=== PATIENT | female | born 1985 | race Caucasian/White ===

== ENCOUNTER 2021-11-22 12:15 | Emergency (ER) | payer OTHER, MEDICAID, SELFPAY ==
[2021-11-22 12:28] VITALS: BP 120/67; PULSE 60; RESP 16; TEMP 36.6; O2SAT 99
--- NOTE | 2021-11-22 12:44 | ED.GENADULT ---
HPI - General Adult General Chief complaint: Upper Respiratory Infection Stated complaint: Congestion,Cough,Sinus Source: patient Mode of arrival: ambulatory Limitations: no limitations History of Present Illness HPI narrative: Patient is a 36-year-old female who presents to the [facility] via POV for evaluation of upper respiratory symptoms that have been present for approximately 4 days. Additionally, she reports right ear pain, nasal congestion, cough, and sinus pressure. She reports her cough is productive. Sputum production is small in quantity and green/brown in color. Denies taking OTC meds for symptoms. Laying down increases sinus pressure. History of seasonal allergies. Her mother is also been experiencing similar signs and symptoms. She is fully vaccinated against influenza and COVID-19. Related Data Home Medications Medication Instructions Recorded Confirmed adalimumab [Humira] See Rx Instructions .ROUTE .COMPLEX 11/22/21 11/22/21 bupropion HCl 300 mg PO QAM 11/22/21 11/22/21 celecoxib [Celebrex] 100 mg PO BID 11/22/21 11/22/21 gabapentin 300 mg PO QPM 11/22/21 11/22/21 lamotrigine 75 mg PO DAILY 11/22/21 11/22/21 lorazepam [Ativan] 1 mg PO BID PRN 11/22/21 11/22/21 testosterone 1 patch TRANSDERMAL DAILY 11/22/21 11/22/21 Allergies Allergy/AdvReac Type Severity Reaction Status Date / Time No Allergy Information Allergy Unknown Other Verified 11/22/21 12:29 Available Review of Systems Review of Systems: Denies fever, chills, sweats, change in appetite, poor p.o. intake, headaches, dizziness, sinus pain, runny nose, headaches, nausea, vomiting, diarrhea, abdominal pain, sore throat, wheezing, hemoptysis, cyanosis, shortness of breath, chest pain, heart palpitations. [facility] Past Medical History Medical History (Updated 11/22/21 @ 13:04 by Lani Lockett, OSBALDO, ) Anxiety Borderline personality disorder Depression Gender dysphoria Rheumatoid arthritis Comments I have reviewed and agree with the patient's past medical, surgical, social, and family hx as documented by the RN. There is no relevant family history pertinent to the presenting complaint. Exam Narrative: GENERAL: Well-appearing, well-nourished, and in no acute distress. HEAD: Normocephalic, atraumatic. No sinus tenderness or facial swelling appreciated. EYES: PERRLA and EOMI. No evidence of erythema, swelling, or drainage. ENT: Bilateral external ears and ear canals normal. Right TM bulging with marked erythema. Small effusion also noted to right TM. Left TM normal. No TM perforation. Nares clear, no rhinorrhea or epistaxis. Bilateral turbinates without erythema/ swelling. Mucous membranes moist and pink. Uvula is midline without erythema and swelling. Posterior pharynx is mildly erythematous otherwise normal. Breath odor and voice normal. NECK: Supple. No Lymphadenopathy or nuchal rigidity appreciated. CHEST: Bilateral lung huntley are clear to auscultation. No respiratory distress. No evidence of cough or pleuritic cp upon examination. HEART: Regular rate and rhythm. No murmur, gallop, or rub heard. EXTREMITIES: Normal range of motion. No edema. SKIN: Warm, dry, no rash. NEURO: No focal deficits. Alert and oriented x3. Course Course Level of Care: Express Care Visit Vital Signs Vital signs: Vital Signs Temperature 97.8 F 11/22/21 12:28 Pulse Rate 60 11/22/21 12:28 Respiratory Rate 16 11/22/21 12:28 Blood Pressure 120/67 11/22/21 12:28 Pulse Oximetry 99 11/22/21 12:28 Temperature 97.8 F 11/22/21 12:28 Pulse Rate 60 11/22/21 12:28 Respiratory Rate 16 11/22/21 12:28 Blood Pressure 120/67 11/22/21 12:28 Pulse Oximetry 99 11/22/21 12:28 Reviewed Medical Decision Making Differential Diagnosis Differential Diagnosis: Allergic rhinitis, ABRS, acute viral sinusitis, strep pharyngitis, nasopharyngitis, bronchitis, pneumonia, AOM, otitis externa, viral URI, influenza, covid-19 Me
== END 2021-11-22 13:00 | disposition home or self-care (01) ==
PROVIDERS: Emergency Provider Nurse Practitioner Family
DX: J06.9 Acute upper respiratory infection, unspecified (principal); H66.92 Otitis media, unspecified, left ear; F41.9 Anxiety disorder, unspecified; F32.9 Major depressive disorder, single episode, unspecified; M06.9 Rheumatoid arthritis, unspecified
CPT/HCPCS: 99213; G0463

== ENCOUNTER 2023-01-27 08:18 | Outpatient (CLI) | payer OTHER, SELFPAY ==
--- NOTE | 2023-02-12 20:25 | WPDHOMESLEEP ---
Sleep Study - Home Unattended Date of Study: 01/27/23 Ordering Provider: Haley Gómez MD Interpreting Provider: Haley Gómez MD Home Sleep Study Type: Watch BREANA Height: 1.68 m Weight: 102.058 kg Body Mass Index: 36.3 Neck Circumference (inches): 16 [place]: 21 Reason for Sleep Study Hypersomnolence, insomnia Sleep History Laith Macias is a 37-year-old female to male transgender patient with history of anxiety, depression, schizoaffective disorder, ADHD, rheumatoid arthritis who underwent a home sleep test for evaluation of insomnia and excessive daytime sleepiness. He rarely awakens from sleep short of breath. He never awakens at night with heartburn, belching or cough. He frequently snores and never snores loud enough for others to complain. He constantly has trouble sleeping when he has a cold. He rarely wakes up gasping for breath during the night. He never has breathing problems at night. He constantly sweats excessively at night. He frequently falls asleep during the day. He frequently falls asleep involuntarily and occasionally falls asleep while driving. He never notices his heart pounding or beating irregularly during the night. He never experiences loss of muscle tone with strong emotion. He never feels paralyzed on waking or falling asleep. He occasionally experiences vivid dreams upon waking or falling asleep. He rarely feels afraid of going to sleep. He rarely has nightmares. He rarely recalls his dreams. He frequently has thoughts racing through his mind. He frequently feels sad or depressed. He constantly feels anxiety or worry about things. He occasionally notices parts of his body jerk. He rarely kicks during the night. He rarely feels crawling or aching feelings in his legs. He rarely feels leg pain at night. He does not grind his teeth during sleep but frequently has morning jaw pain. He constantly feels bothered by pain during the day and is frequently awakened by pain during the night. He constantly wakes up feeling stiff in the morning and frequently wakes up feeling sore and achy in the morning with pain in his neck, spine, or joints. Normal bedtime is around 10pm on the weekdays and same on the weekends, usually falling asleep anywhere from 20 minutes up to 4 hours. He typically gets about 6 hours of sleep per night. His wake-up time is around 6am on the weekdays and same on the weekends. He typically wakes up around 2 to 3 times per night and can be awake anywhere from 1 hour to the rest of the night, during which time he will read for a bit then try to fall back to sleep. Habits: Former tobacco smoker. He does not use caffeine or alcohol. Occasional recreational drug use. [facility] Past Medical History Medical History Anxiety Borderline personality disorder Depression Gender dysphoria Rheumatoid arthritis Family History Family History Father Heart disease Cerebrovascular accident Agent orange exposure Mother Type 2 diabetes mellitus Hypertension Cancer Sibling Unknown whether patient has any health problems Social History Social History Smoking status: Former smoker (quit 10 years ago 2012) Smoking end date: 07/20/12 Alcohol intake: never Substance use: current Substance use type: marijuana Other substance usage details: socially Living arrangements: with family Occupation/Education: student Medications Home Medications Medication Instructions Recorded Confirmed Type lorazepam 1 mg tablet (Ativan) 1 mg PO BID PRN Anxiety 11/22/21 11/22/21 History adalimumab 40 mg/0.4 mL 40 mg subcut 12/23/22 History subcutaneous pen kit (Humira(CF) Pen) clonidine HCl 0.1 mg 0.1 mg PO 12/23/22 History tablet,extended release,12 hr gabapentin 100 mg capsule 100 mg PO 12/23/22 History gabapent
[2023-02-12 20:31] VITALS: BMI 36.3
== END 2023-01-28 13:08 | disposition home or self-care (01) ==
LOC: ANHCSM 08:19
PROVIDERS: Visit Provider Internal Medicine Critical Care Medicine
DX: G47.33 Obstructive sleep apnea (adult) (pediatric) (principal); G47.10 Hypersomnia, unspecified; Z68.36 Body mass index [BMI] 36.0-36.9, adult
CPT/HCPCS: 95800

== ENCOUNTER 2023-01-29 17:01 | Emergency (ER) | payer OTHER, SELFPAY ==
--- NOTE | ~2023-01-29 | XR_ITS ---
EXAMINATION: XR foot RT min 3V DATE: 01/29/2023 17:49 INDICATION: Right foot injury. TECHNIQUE: 4 views of right foot were obtained. COMPARISON: None. FINDINGS: There is mild hallux valgus. No fracture. There is mild osteoarthritis of first metatarsoph alangeal joint. IMPRESSION: 1. Mild hallux valgus. 2. Mild osteoarthritis of first metatarsophalangeal joint. Reviewed, dictated and finalized at location E.
[2023-01-29 17:15] VITALS: BP 141/80; PULSE 62; RESP 16; TEMP 36.6; O2SAT 99
--- NOTE | 2023-01-29 18:45 | ED.LOWEXIN ---
HPI - Extremity Injury (Lower) General Chief Complaint: Extremity Injury, Lower Stated Complaint: R FOOT INJURY Time Seen by Provider: 01/29/23 18:20 History of Present Illness HPI Narrative: Patient is a 37-year-old male presenting with right foot pain. Patient states that about 6 days ago he twisted his right ankle and foot. States that he has had pain in this foot since then. States that he has had some bruising around some of his toes. Has continued to have a lot of pain especially with ambulation so he came in for further evaluation. No numbness or weakness. Denies further injuries or complaints. Related Data Home Medications Medication Instructions Recorded Confirmed lorazepam 1 mg tablet (Ativan) 1 mg PO BID PRN Anxiety 11/22/21 11/22/21 adalimumab 40 mg/0.4 mL 40 mg subcut 12/23/22 subcutaneous pen kit (Humira(CF) Pen) clonidine HCl 0.1 mg 0.1 mg PO 12/23/22 tablet,extended release,12 hr gabapentin 100 mg capsule 100 mg PO 12/23/22 gabapentin 300 mg capsule 300 mg PO 12/23/22 lamotrigine 200 mg tablet 200 mg PO 12/23/22 lisdexamfetamine 40 mg capsule 40 mg PO 12/23/22 (Vyvanse) methotrexate sodium 2.5 mg tablet 2.5 mg PO 12/23/22 propranolol 20 mg tablet 20 mg PO 12/23/22 testosterone cypionate 200 mg/mL 200 mg subcut 12/23/22 intramuscular oil trazodone 50 mg tablet 50 mg PO 12/23/22 venlafaxine 75 mg capsule,extended 75 mg PO 12/23/22 release 24 hr ziprasidone HCl 80 mg capsule 80 mg PO 12/23/22 Allergies Allergy/AdvReac Type Severity Reaction Status Date / Time No Allergy Information Allergy Unknown Other Verified 01/29/23 19:03 Available Review of Systems Review of Systems: All systems reviewed & are unremarkable except as noted in HPI and below PMFSH Past Medical History Medical History Anxiety Borderline personality disorder Depression Gender dysphoria Rheumatoid arthritis Family History Family History Father Heart disease Cerebrovascular accident Agent orange exposure Mother Type 2 diabetes mellitus Hypertension Cancer Sibling Unknown whether patient has any health problems Social History Social History Smoking status: Former smoker (quit 10 years ago 2012) Smoking end date: 07/20/12 Alcohol intake: never Substance use: current Substance use type: marijuana Other substance usage details: socially Living arrangements: with family Occupation/Education: student Exam Narrative: GENERAL: Well-appearing, well-nourished, and in no acute distress. HEAD: Normocephalic, atraumatic. EYES: PERRLA and EOMI. ENT: Nares clear, no rhinorrhea or epistaxis. NECK: Supple. CHEST: No respiratory distress. HEART: Regular rate and rhythm. Normal peripheral pulses. ABDOMEN: nondistended EXTREMITIES: Normal range of motion. No edema. no tenderness of right ankle, tender at bases of toes and lateral dorsal foot SKIN: Warm, dry, no rash. ecchymoses at bases of 2,3,4 toes, neurovascularly intact NEURO: No focal deficits. Alert and oriented x3. PSYCH: Normal mood and affect. Course Vital Signs Vital signs: Vital Signs Temperature 97.8 F 01/29/23 17:15 Pulse Rate 62 01/29/23 17:15 Respiratory Rate 16 01/29/23 17:15 Blood Pressure 141/80 H 01/29/23 17:15 Pulse Oximetry 99 01/29/23 17:15 Oxygen Delivery Room Air 01/29/23 17:15 Temperature 97.8 F 01/29/23 17:15 Pulse Rate 62 01/29/23 17:15 Respiratory Rate 16 01/29/23 17:15 Blood Pressure 141/80 H 01/29/23 17:15 Pulse Oximetry 99 01/29/23 17:15 Oxygen Delivery Room Air 01/29/23 17:15 MDM - Extremity Injury (Lower) MDM Narrative Medical decision making narrative: Patient is a 37-year-old male presenting with right foot pain after twisting it. Vitals within
[2023-01-29] MEDS: ACETAMINOPHEN 500 MG TABLET 1000 MG PO (19:04)
[2023-01-29] MEDS: IBUPROFEN 400 MG TABLET 800 MG PO (19:04)
== END 2023-01-29 20:00 | disposition home or self-care (01) ==
PROVIDERS: Emergency Provider Emergency Medicine
DX: M79.671 Pain in right foot (principal); Z87.891 Personal history of nicotine dependence
CPT/HCPCS: 73630; 99283; A9270

== ENCOUNTER 2023-03-12 12:36 | Outpatient (CLI) | payer OTHER, SELFPAY ==
[2023-04-01 18:39] VITALS: BMI 36.8
--- NOTE | 2023-04-01 18:39 | WPDSLEEPSTUD ---
Sleep Study Date of Study: 03/12/23 Ordering Provider: Haley Gómez MD Interpreting Physician: Haley Gómez MD Sleep Study Type: CPAP Titration Height: 1.68 m Weight: 103.419 kg Body Mass Index: 36.8 Neck Circumference (inches): 16 [place]: 17 Reason for Sleep Study * 01/27/2023 WatchPat home slee test showed mild obstructive sleep apnea, the apnea-hypopnea index is 7.9,?the central apnea index is 1.2, REM AHI 13.4.? Here for CPAP titration. Sleep History Laith Macias is a 37-year-old female to male transgender patient with history of anxiety, depression, schizoaffective disorder, ADHD, rheumatoid arthritis who underwent a home sleep test for evaluation of insomnia and excessive daytime sleepiness.? He rarely awakens from sleep short of breath.? He never awakens at night with heartburn, belching or cough.? He frequently snores and never snores loud enough for others to complain. He constantly has trouble sleeping when he has a cold. He rarely wakes up gasping for breath during the night. He never has breathing problems at night. He constantly sweats excessively at night. He frequently falls asleep during the day. He frequently falls asleep involuntarily and occasionally falls asleep while driving.? He never notices his heart pounding or beating irregularly during the night.? He never experiences loss of muscle tone with strong emotion. He never feels paralyzed on waking or falling asleep. He occasionally experiences vivid dreams upon waking or falling asleep. He rarely feels afraid of going to sleep. He rarely has nightmares. He rarely recalls his dreams. He frequently has thoughts racing through his mind. He frequently feels sad or depressed. He constantly feels anxiety or worry about things. He occasionally notices parts of his body jerk. He rarely kicks during the night. He rarely feels crawling or aching feelings in his legs. He rarely feels leg pain at night. He does not grind his teeth during sleep but frequently has morning jaw pain. He constantly feels bothered by pain during the day and is frequently awakened by pain during the night. He constantly wakes up feeling stiff in the morning and frequently wakes up feeling sore and achy in the morning with pain in his neck, spine, or joints.? Normal bedtime is around 10pm on the weekdays and same on the weekends, usually falling asleep anywhere from 20 minutes up to 4 hours. He typically gets about 6 hours of sleep per night. His wake-up time is around 6am on the weekdays and same on the weekends. He typically wakes up around 2 to 3 times per night and can be awake anywhere from 1 hour to the rest of the night, during which time he will read for a bit then try to fall back to sleep. Habits:? Former tobacco smoker. He does not use caffeine or alcohol. Occasional recreational drug use. [facility] Past Medical History Medical History (Updated 04/01/23 @ 18:53 by Haley Gómez MD) Anxiety Borderline personality disorder Depression Gender dysphoria Obstructive sleep apnea Rheumatoid arthritis Family History Family History Father Heart disease Cerebrovascular accident Agent orange exposure Mother Type 2 diabetes mellitus Hypertension Cancer Sibling Unknown whether patient has any health problems Social History Social History Smoking status: Former smoker (quit 10 years ago 2012) Smoking end date: 07/20/12 Alcohol intake: never Substance use: current Substance use type: marijuana Other substance usage details: socially Living arrangements: with family Occupation/Education: student Medications Home Medications Medication Instructions Recorded Confirmed Type lorazepam 1 mg tablet (Ativan) 1 mg PO BID PRN Anxiety 11/22/21 11/22/21 History adalimumab 40 mg/0.4 mL 40 mg subcut 12/23/22 History subcutaneous pen kit (Humira(CF) Pen
== END 2023-03-13 07:05 | disposition home or self-care (01) ==
LOC: ANHCSM 12:36
PROVIDERS: Visit Provider Internal Medicine Critical Care Medicine
DX: G47.33 Obstructive sleep apnea (adult) (pediatric) (principal)
CPT/HCPCS: 95811

== ENCOUNTER 2023-05-30 13:19 | Emergency (ER) | payer OTHER, SELFPAY ==
--- NOTE | ~2023-05-30 | XR_ITS ---
EXAMINATION: XR chest 2V DATE: 05/30/2023 13:49 INDICATION: Cough. Chest congestion. Fever. TECHNIQUE: Frontal and lateral views of the chest were obtained. COMPARISON: Chest 2 views 10/05/2018 FINDINGS: There are airspace opacities in left lower lobe. No pleural effusion or pneumothorax. The h eart size is normal. IMPRESSION: 1. Airspace opacities in left lower lobe, consistent with pneumonia. Reviewed, dictated and finalized at location A. [facility]
[2023-05-30 13:34] VITALS: BP 121/68; PULSE 75; RESP 18; TEMP 36.9; O2SAT 95
--- NOTE | 2023-05-30 13:34 | ED.URI ---
HPI - URI/Sore Throat General Chief Complaint: Upper Respiratory Infection Stated Complaint: cough Time Seen by Provider: 05/30/23 13:34 Source: patient Mode of arrival: ambulatory Limitations: no limitations History of Present Illness HPI Narrative: Laith is a 38-year-old man presenting to the complaints a cough and chest congestion x1 week. They report they have felt feverish however they have not been able to checked her temperature. Denies any chest pain or but has mild shortness of breath. SpO2 is 95% on room air. No history of current tobacco use or vaping. Does smoke marijuana occasionally. Sore throat only when coughing. MD elicited complaint: cough, sore throat, nasal congestion and other (Chest congestion) Related Data Home Medications Medication Instructions Recorded Confirmed lorazepam 1 mg tablet (Ativan) 1 mg PO BID PRN Anxiety 11/22/21 11/22/21 adalimumab 40 mg/0.4 mL 40 mg subcut 12/23/22 subcutaneous pen kit (Humira(CF) Pen) clonidine HCl 0.1 mg 0.1 mg PO 12/23/22 tablet,extended release,12 hr gabapentin 100 mg capsule 100 mg PO 12/23/22 gabapentin 300 mg capsule 300 mg PO 12/23/22 lamotrigine 200 mg tablet 200 mg PO 12/23/22 lisdexamfetamine 40 mg capsule 40 mg PO 12/23/22 (Vyvanse) methotrexate sodium 2.5 mg tablet 2.5 mg PO 12/23/22 propranolol 20 mg tablet 20 mg PO 12/23/22 testosterone cypionate 200 mg/mL 200 mg subcut 12/23/22 intramuscular oil trazodone 50 mg tablet 50 mg PO 12/23/22 venlafaxine 75 mg capsule,extended 75 mg PO 12/23/22 release 24 hr ziprasidone HCl 80 mg capsule 80 mg PO 12/23/22 Allergies Allergy/AdvReac Type Severity Reaction Status Date / Time No Allergy Information Allergy Unknown Other Verified 01/29/23 19:03 Available Review of Systems Review of Systems: Pertinent positives per HPI. Patient denies any rash, headache, visual changes, dizziness, chest pain, palpitations, nausea, vomiting, diarrhea, constipation, abdominal pain, or any urinary issues. [facility] Past Medical History Medical History Anxiety Borderline personality disorder Depression Gender dysphoria Obstructive sleep apnea Rheumatoid arthritis Family History Family History Father Heart disease Cerebrovascular accident Agent orange exposure Mother Type 2 diabetes mellitus Hypertension Cancer Sibling Unknown whether patient has any health problems Social History Social History Smoking status: Former smoker (quit 10 years ago 2012) Smoking end date: 07/20/12 Alcohol intake: never Substance use: current Substance use type: marijuana Other substance usage details: socially Living arrangements: with family Occupation/Education: student Gender identity (if verbalized by the patient): Transgender Male Comments At the time of my signature, I reviewed and agree with the nursing past medical, surgical, social, and family history. There is no relevant family history pertinent to the patient complaint. Exam Narrative: General: Well-developed, overweight in no apparent distress Head: Normocephalic, atraumatic Eyes: Pupils equally round and reactive to light bilaterally, EOM intact, sclera and conjunctive clear, no discharge, lids normal Ears: TMs intact and clear, ear canals clear, no drainage, grossly hearing normal. Nose: Nares patent, clear nasal discharge, no inflammation, no sinus tenderness. Mouth: Oral pharynx without lesions or masses, good dentition, MMM. Neck: Supple, trachea midline, no enlargement of anterior or posterior cervical nodes, no thyroid masses or goiter palpable. Cardio: Regular rate and rhythm, s1 and s2 normal, no murmur appreciated. Resp: Bilateral rhonchi/crackles in the lower bases lung huntley, no wheezing or rubs
--- NOTE | 2023-05-30 14:13 | PC.NURSE ---
PT SENT HOME WITH INCENTIVE SPIROMETER
== END 2023-05-30 14:16 | disposition home or self-care (01) ==
PROVIDERS: Emergency Provider Nurse Practitioner Family
DX: J18.9 Pneumonia, unspecified organism (principal); Z87.891 Personal history of nicotine dependence
CPT/HCPCS: 71046; 99213; G0463

== ENCOUNTER 2025-01-16 14:01 | Emergency (ER) | payer SELFPAY ==
[2025-01-16 14:13] VITALS: BP 106/66; PULSE 76; RESP 18; TEMP 36.2; O2SAT 100
--- OUTSIDE RECORDS SUMMARY | 2025-01-16 14:19 | XMS_ITS | Clinical Summary ---
Author Organization [facility] [place] Address [address] [place] [place] [address] Care Team Providers Care Coil Cleaner Name Role Phone Gordy Paula Primary Care Provider [phone] Source Comments [facility],non-owned Affiliates and Associated Physician Practices is amultiple site organization consisting of ambulatory clinics and hospital sitesin [place], [place], [place] and [place]. This disclosure is being madepursuant to the Care Everywhere program and may not contain all information available regarding this patient. Last updated 18.[facility] [place] Allergies Active Allergy Reactions Criticality Noted Date Comments Tomato Swelling High 04/23/2017 Throat swelling Medications * Be aware that medications may not be up to date on this document. Alwaysverify current medications with the patient. rOPINIRole (REQUIP) 0.5 MG tablet Take 1 (one) tablet by mouth 07/10/2021 Active lamoTRIgine (LAMICTAL) 200 MG tablet Take 1 (one) tablet by mouth 2 times daily 07/12/2021 Active ziprasidone (Geodon) 80 MG capsule Take 1 (one) capsule by mouth 2 times daily with morning and evening meal 05/08/2022 Active LORazepam (Ativan) 1 MG tablet 05/02/2022 Active traZODone (Desyrel) 50 MG tablet Take 1 (one) tablet to 2 (two) tablets by mouth nightly as needed 07/22/2022 Active venlafaxine XR 24hr (Effexor XR) 75 MG capsule Take 1 (one) capsule by mouth 2 times daily 08/17/2023 Active lurasidone (Latuda) 20 MG tablet Take 1 (one) tablet by mouth every evening 08/17/2023 Active famciclovir (Famvir) 500 MG tablet Take 1 (one) tablet by mouth 3 times daily For 7 days. 08/20/2023 Active cloNIDine ER 12hr (Kapvay) 0.1 MG tablet Take 1 (one) tablet by mouth at bedtime 08/05/2023 Active amphetamine-dex troamphetamine XR 24hr (Adderall XR) 15 MG capsule Take 1 (one) capsule by mouth once daily 08/05/2023 Active methotrexate 2.5 MG tablet Take 3 (three) tablets by mouth every 7 days for 14 days, THEN 6 (six) tablets every 7 days. 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 (F LUZONE; FLULAVAL; FLUARIX; AFLURIA QUADRIVALENT; 6MO+), 0.5 ML (IIV4) 07/27/2020,05/13/2019,04/13/2018 TDAP (7yrs+) 09/02/2012 iNFLUENZA VACCINE, RECOM-GARCIA, QUADR. (FLUBLOCK QUADRIVALENT; 18Y+) (RIV4) 05/21/2022 Social History Tobacco Use Types Packs/Day Years Used Date Smoking Tobacco: Some Days Cigarettes Smokeless Tobacco: Never Tobacco Cessation:Ready to Q uit: Not Asked; Counseling Given: Not Answered Comments:Quit 12/2017 Alcohol Use Standard Drinks/Week Comments No 0 (1 standard drink = 0.6 oz pur e alcohol) PHQ-2 Answer Date Recorded Patient Health Questionnaire-2 Score 4 08/27/2023 Comments No Sex and Gender Information Value Date Recorded Sex Assigned at Not on file Legal Sex Female 5:35 AM CAR LOADER Gender Identity Male 08/20/2022 8:12 AM CAR LOADER Sexual Orientation Not on file Last Filed Vital Signs Vital Sign Reading Time Taken Comments Blood Pressure 108/68 08/27/2023 2:50 PM CAR LOADER Pulse 71 08/27/2023 2:50 PM CAR LOADER Temperature 36.3 C (97.4 F) 08/27/2023 2:50 PM CAR LOADER Respiratory Rate 18 04/23/2017 9:49 AM CDT Oxygen Saturation 94% 08/27/2023 2:50 PM CAR LOADER Inhaled Oxygen Concentration - - Weight 107.1 kg (236 lb 3.2 oz) 08/27/2023 2:50 PM CAR LOADER Height 167.6 cm (5' 6) 08/27/2023 2:50 PM CAR LOADER Body Mass Index 38.12 08/27/2023 2:50 PM CAR LOADER Plan of Treatment Health Maintenance Due Date Last Done Comments HIV SCREENING 2001 HEPATITIS B VACCINE (1 of 3 - 19+ 3-dose series) 2005 PNEUMOCOCCAL VACCINE (1 of 2 - PCV) 2005 ZOSTER VACCINE (1 of 2) 2005 PAP SMEAR 2007 COVID-19 VACCINE (3 - Pfizer risk series) 11/07/2020 10/10/2020, 09/18/2020 DTAP/TDAP/TD VACCINES (2 - Td or Tdap) 09/02/2022 09/02/2012 DEPRESSION SCREENING 07/20/2024 08/27/2023, 03/27/20 22 INFLUENZA VACCINE (Season Ended) 2025 05/21/2022, 06/29/2021, 07/27/2020, Additional history exists HEPATITIS C SCREENING Completed 03/27/2022, 017 HIB VACCINE Aged Out No longer eligi ble based on patient's age to complete this topic HPV VACCINE Aged Out No longer eligi ble based on patient's age to complete this topic MENINGOCOCCAL (Group B) VACCINE SHARED DECISION-MAKING Aged Out No longer eligible based on patient's age to complete this topic MENINGOCOCCAL GROUPS A/C/Y/W VACCINE Aged Out No longer eligible based on patient's age to complete this topic Procedures Procedure Name Priority Date/Time Associated Diagnosis Comments HEPATITIS C ANTIBODY Routine 03/27/2022 9:29 AM CDT Rheumatoid arthritis involving multiple sites with positive rheumatoid factor 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 Patients with unexplained liver disease who are immunocompromised or suspected of having acute Hepatitis C infection may benefit from Nucleic Acid Test (ROMARIO) for Hepatitis C Viral RNA to confirm Hepatitis C status. Blood BLOOD SPECIMEN / Unknown Lab Venipuncture / Unknown 03/27/2022 9:29 AM CDT 03/27/2022 10:52 AM CDT Franko Fraser MD LAB - CHEMISTRY ORDERABLES Final Result [facility] [address] [place] [address], [facility] [phone] from Last 3 Months or Most Recently Relevant to Health Maintenance Insurance [facility] Care Teams Coil Cleaner Relationship Specialty Start Date End Date Gordy Paula PA [address] [place] [id number] PCP - General 01/18/18
--- OUTSIDE RECORDS SUMMARY | 2025-01-16 14:19 | XMS_ITS | Clinical Summary ---
Author Organization [facility] Address [address] [place] [address] Care Team Providers Care Account Executive [employer] Name Role Phone Susu Macedo MD Primary Care Provider [phone] Allergies No known active allergies Medications adalimumab (Humira,CF, Pen) 40 mg/0.4 mL pen injector kitIndications:Rh eumatoid Arthritis Inject 0.4 mL (40 mg total) under the skin every 14 (fourteen) days 1 Active FLUoxetine (PROzac) 40 mg capsule Take 40 mg by mouth every morning 1 Active methotrexate 2.5 mg tabletIndications :Rheumatoid Arthritis Take 7 tablets (17.5 mg total) by mouth every 7 days 1 Active testosterone cypionate (DEPO-TESTOTERONE ) 200 mg/mL injectionIndicati ons:Mondays- gender transition Inject 1 mL (200 mg total) into the muscle as instructed once a week 1 Active cloNIDine ER (KAPVAY) 0.1 mg tablet extended release 12 hr Take 1 tablet (0.1 mg total) by mouth nightly 3 Active finasteride (PROPECIA) 1 mg tablet Take 1 tablet (1 mg total) by mouth daily Active lisdexamfetamine (Vyvanse) 20 mg capsule Take 1 capsule (20 mg total) by mouth daily 3 Active rOPINIRole (REQUIP) 0.5 mg tablet Take 1 tablet (0.5 mg total) by mouth 1 Active traZODone (DESYREL) 50 mg tablet Take by mouth nightly as needed 3 Active venlafaxine XR (EFFEXOR-XR) 75 mg 24 hr capsule TAKE 1 CAPSULE BY MOUTH TWICE A DAY WITH FOOD 3 Active ziprasidone (GEODON) 80 mg capsule TAKE 1 CAPSULE BY MOUTH TWICE A DAY WITH FOOD Active propranoloL (INDERAL) 20 mg tablet Take by mouth as needed 3 Active gabapentin (NEURONTIN) 300 mg capsule TAKE 1 CAPSULE BY MOUTH IN THE MORNING AND 1 CAPSULE AT NOON, 2 CAPSULES BEFORE BED FOR 90 DAYS 3 Active lamoTRIgine (LaMICtal) 200 mg tablet 2 (two) times a day 3 Active LORazepam (ATIVAN) 1 mg tablet 1 tablet (1 mg total) 3 Active levETIRAcetam (KEPPRA) 750 mg tabletIndications :Spell of altered consciousness TAKE 1 TABLET BY MOUTH TWICE A DAY 180 tablet 3 Active Additional Information Patient not taking.Reported on 06/16/2023 Active Problems Problem Noted Date Diagnosed Date Abnormal EEG 06/18/2023 Spell of altered consciousness 2023 Abnormal uterine bleeding 01/22/2021 Overview (01/22/2021): Added automatically from request for surgery [id number] Premenstrual dysphoric disorder 01/22/2021 Overview (01/22/2021): Added automatically from request for surgery [id number] Gender identity disorder 01/22/2021 Overview (01/22/2021): Added automatically from request for surgery [id number] Adiposity 01/26/2014 Overview (10/25/2016): Obesity Arthralgia 01/26/2014 Overview (10/25/2016): Joint pain Surgical History Surgery Date Site/Laterality Comments THUMB SURGERY 07/20/2012 - 07/19/2013 Left WISDOM TOOTH EXTRACTION Medical History Medical History Date Comments Depression Transgender gender identity- female to male Rheumatoid arthritis (HCC) Tobacco abuse Marijuana smoker Obesity PONV (postoperative nausea and vomiting) Family History Medical History Relation Name Comments Asthma Brother Asthma; Other Father Heart attack/ s troke; Cause of : Heart attack/ stroke Psoriasis Father Psoriasis; Rheum arthritis Father Rheumatoid a rthritis; Diabetes type II Mother Diabetes me llitus type 2; Hypertension Mother Hypertension; Rheum arthritis Paternal Grandmother Rheu matoid arthritis; Relation Name Status Comments Brother Father Mother Paternal Grandmother Social History Tobacco Use Types Packs/Day Years Used Date Smoking Tobacco: Former Cigarettes 0.5 9.6 2 008 - 03/13/2017 Smokeless Tobacco: Never Tobacco Cessation:Counseling Given: No Alcohol Use Standard Drinks/Week Comments Yes 0 (1 standard drink = 0.6 oz pur e alcohol) AUDIT-C Answer Date Recorded Q1: How often do you have a drink containing alc ohol? Never 03/13/2021 Average Number of Drinks Not on file 021 Q3: How often do you have si x or more drinks on one occasion? 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 Gender Identity Male 2023 12:22 PM CDT Sexual Orientation Not on file Obstetrics History Last Filed Vital Signs Vital Sign Reading Time Taken Comments Blood Pressure 109/76 06/16/2023 8:14 AM LINE HAUL DRIVER Pulse 74 06/16/2023 8:14 AM LINE HAUL DRIVER Temperature 36.5 C (97.7 F) 08/28/2018 10:38 AM LINE HAUL DRIVER Respiratory Rate 18 06/16/2023 8:14 AM LINE HAUL DRIVER Oxygen Saturation 94% 06/16/2023 8:14 AM LINE HAUL DRIVER Inhaled Oxygen Concentration - - Weight 100.2 kg (221 lb) 06/16/2023 8:14 AM LINE HAUL DRIVER Height 167.6 cm (5' 6) 06/16/2023 8:14 AM LINE HAUL DRIVER Body Mass Index 35.67 06/16/2023 8:14 AM LINE HAUL DRIVER Plan of Treatment Health Maintenance Due Date Last Done Comments Cervical Cancer Screening 1986 Depression Screening 1986 Hepatitis C Screening 1986 Varicella Vaccines (1 of 2 - 13+ 2-dose series) 1999 Hepatitis B Screening 2004 Regular Well Visit/Exam 18-64 2004 Pneumococcal vaccine <65 (1 of 2 - PCV) 2005 Zoster Vaccine (1 of 2) 2005 Covid-19 Vaccine (3 - Pfizer risk series) 11/07/2020 10/10/2020, 09/18/2020 Influenza Vaccine (Season Ended) 2025 05/21/2022, 06/29/2021, 07/27/2020, Additional history exists DTaP/Tdap/Td Vaccine (3 - Td or Tdap) 10/12/2028 10/12/2018, 09/02/2012 HPV Vaccines Aged Out No longer eligi ble based on patient's age to complete this topic Insurance [facility] Member Subscriber Plan / Payer (Ef fective 2021-Present) Name:Tisha Macias Relation to Subscriber:Self Name:Tisha Macias Payer ID:[id number] (NA) Type:MEDICAID RISK OTHER Address: [place] [id number] Care Teams Account Executive Agribusiness Relationship Specialty Start Date End Date Susu Macedo MD PCP - General 01/22/21
--- OUTSIDE RECORDS SUMMARY | 2025-01-16 14:19 | XMS_ITS | Patient Health Record ---
Author Organization [facility] Address [address] [place] [address] Care Team Providers [facility] Officer Name Role Phone Afia Navarro Primary Care Provider [phone] Chacho Thomas Unavailable [phone] Allergies No Known Allergies Reason For Referral No Information Medications Medication SIG (Take, Route, Frequency, Duration) Notes Start Date End Date Status LORazepam 1 MG 1 tablet Orally Three times daily As needed for severe anxiety/panic 08/10/2024 Active traZODone HCl 50 MG 1 tablet at bedtime as needed Orally Once a day Active lamoTRIgine 200 MG TAKE 1 TABLET BY MOUTH TWICE A DAY Patient requests 30 day fills with refills (not 90 day) Active Amphetamine-Dextroa mphet ER 15 MG 1 capsule in the morning Orally Once a day Prescribed per Haley Gómez MD currently. 08/17/2023 Active Venlafaxine HCl ER 75 MG 1 capsule with food Orally Twice a day Active Venlafaxine HCl ER 150 MG 1 capsule with food Orally Once a day Patient requests 30 day fills with refills (not 90 day) Active Humira 40 MG/0.8ML 0.8 mL Subcutaneous; Duration: 30 day(s) Active [place] Carbonate ER 300 MG 1 tablet at bedtime Orally Once a day; Duration: 30 days Stopping haldol, client did not have good response. Starting low dose, subtherapeutic lithium as augmenting medication paired with lurasidone/lamotrigi ne combo. 11/22/2024 Active Methotrexate 2.5 MG as directed Orally Active Lurasidone HCl 120 MG 1 tablet in the evening with food Orally Once a day; Duration: 30 days Dose increase to daily total of 120 mg once daily. Client has requested 30 day fills not 90 day. Active Testosterone Cypionate 200 MG/ML 1 ml Intramuscular Ac tive Finasteride 1 MG 1 tablet Orally Once a day; Duration: 30 day(s) Active Venlafaxine HCl ER 75 MG 1 capsule with food (take in addition to 150 mg capsule) Orally Once a day; Duration: 30 days Patient requests 30 day fills with refills (not 90 day) 03/09/2024 Active Social History Tobacco Use: Social History Observation Description Date Details (start date - stop date) Never Smoker NA - NA Sex Assigned At : Social History Observation Description Sex Assigned At Female Dont use, Tobacco Use/Smoking Question Answer Notes Are you a former smoker Alcohol Screen (Audit-C) Question Answer Notes Did you have a drink containing alcohol in the p ast year? Yes Tobacco Control (Standard) Question Answer Notes Tobacco use: Nonsmoker Problems Problem Type SNOMED Code ICD Code Onset Dates Problem Status W/U Status Risk Notes Problem Extrapyramidal movements (495531951) Extrapyramidal and movement disorder, unspecified (G25.9) Active confirmed Problem Attention deficit hyperactivity disorder (609794436) ADHD (attention deficit hyperactivity disorder), combined type (F90.2) Active confirmed Problem Generalized anxiety disorder (97268025) BRAULIO (generalized anxiety disorder) (F41.1) Active confirmed Problem Cannabis abuse (48324332) Cannabis abuse (F12.10) Active confirmed Problem Schizoaffective disorder (20703828) Schizoaffective disorder (F25.9) Active confirmed Problem EEG abnormal (748198259) Abnormal EEG (R94.01) Active confirmed Problem Obese class I (839324098394485) BMI 33.0-33.9,adult (Z68.33) Active confirmed Encounters Encounter Location Date Provider Diagnosis [address] [place] [address] 02/02/2024 Chacho Thomas Schizoaffective disorder F25.9 ; BRAULIO (generalized anxiety disorder) F41.1 ; ADHD (attention deficit hyperactivity disorder), combined type F90.2 and Extrapyramidal and movement disorder, unspecified G25.[address] [place] [address] 03/09/2024 Chacho Thomas Schizoaffective disorder F25.9 ; BRAULIO (generalized anxiety disorder) F41.1 ; ADHD (attention deficit hyperactivity disorder), combined type F90.2 and Extrapyramidal and movement disorder, unspecified G25.[address] [address] 05/24/2024 Chacho Thomas Schizoaffective disorder F25.9 ; BRAULIO (generalized anxiety disorder) F41.1 ; ADHD (attention deficit hyperactivity disorder), combined type F90.2 and Extrapyramidal and movement disorder, unspecified G25.[address] [address] 08/10/2024 Chacho Thomas Schizoaffective disorder F25.9 ; BRAULIO (generalized anxiety disorder) F41.1 ; ADHD (attention deficit hyperactivity disorder), combined type F90.2 and Extrapyramidal and movement disorder, unspecified G25.[address] [address] 11/09/2024 Chacho Thomas Schizoaffective disorder F25.9 ; BRAULIO (generalized anxiety disorder) F41.1 ; ADHD (attention deficit hyperactivity disorder), combined type F90.2 and Extrapyramidal and movement disorder, unspecified G25.[address] [address] 11/22/2024 Chacho Thomas Schizoaffective disorder F25.9 ; BRAULIO (generalized anxiety disorder) F41.1 ; ADHD (attention deficit hyperactivity disorder), combined type F90.2 and Extrapyramidal and movement disorder, unspecified G25.9 [facility] [address] [place] [address] 01/20/2024 Chacho Thomas Schizoaffective disorder F25.[address] [address] 02/15/2024 Chacho Thomas [facility] [address] [place] [address] 02/16/2024 Chacho Thomas Schizoaffective disorder F25.9 and BRAULIO (generalized anxiety disorder) F41.[address] [place] [address] 05/16/2024 Chacho Thomas BRUALIO (generalized anxiety disorder) F41.1 and Schizoaffective disorder F25.[address] [place] [address] 08/23/2024 Chacho Thomas [facility] [address] [place] [address] 09/13/2024 Chacho Thomas [facility] [address] [place] [address] 11/11/2024 Chacho Thomas [address] [place] [address] 11/21/2024 Chacho Thomas [address] [facility] [place] [address] 11/30/2024 Chacho Thomas Schizoaffective disorder F25.9 Assessments Encounter Date Diagnosis (ICD Code) Assessment Notes Treatment Notes Treatment Clinical Notes Section Notes 01/20/2024 Schizoaffective disorder (ICD-10 - F25.9) 02/02/2024 Schizoaffective disorder (ICD-10 - F25.9) Client requests a prn immediate release dose of guanafacine to use during daytime to see if helpful for anxiety and an increase in ER to see if helpful. No other changes in medications at this time. 02/16/2024 Schizoaffective disorder (ICD-10 - F25.9) 03/09/2024 Schizoaffective disorder (ICD-10 - F25.9) Client very distressed, denies SI/HI. Requests increases to Latuda/guanfaci ne. Discussed increase to venlafaxine as this as helped in past. Discussed cannabis withdrawal playing larger role in symptomology than client may be realizing. Client states does not feel this is the issue. Encouraged client to reach out to endocrinology for hormone level check in event this could also be playing a role in symptoms. 05/16/2024 BRAULIO (generalized anxiety disorder) (ICD-10 - F41.1) 05/24/2024 Schizoaffective disorder (ICD-10 - F25.9) 08/10/2024 Schizoaffective disorder (ICD-10 - F25.9) Client doing well, no treatment plan changes needed at present. 11/09/2024 Schizoaffective disorder (ICD-10 - F25.9) Client is agreeable to increase in lurasidone from 80 mg to 100 mg for tx of increase in manic behaviors/AH. Haldol 0.5 mg PRN prescribed as rescue medication for client to take half tablet to full tablet once a day for increased paranoia as client very fearful of losing job due to continued behaviors. No other changes in tx plan at this time. Client has taken the rest of the week off work and knows to call if letter needed. 11/22/2024 Schizoaffective disorder (ICD-10 - F25.9) Client continues to struggle with mood swings and irritability. Haldol unhelpful for quick mood stability as hoped. Client requesting lurasidone maxed out at 120 mg (now at 100 mg) as this medication has been very helpful in past and client does not want to switch to different SGA. Not in dx list but has been dx BPD in past and not currently in counseling. Encouraged to think about therapy as recently moved out on own with son for first time as adult and has had many new changes. Client open to trial of low dose ER lithium to stablize mood as quickly as possible. No other changes to tx plan. 11/30/2024 Schizoaffective disorder (ICD-10 - F25.9) 11/22/2024 BRAULIO (generalized anxiety disorder) (ICD-10 - F41.1) Client continues to struggle with mood swings and irritability. Haldol unhelpful for quick mood stability as hoped. Client requesting lurasidone maxed out at 120 mg (now at 100 mg) as this medication has been very helpful in past and client does not want to switch to different SGA. Not in dx list but has been dx BPD in past and not currently in counseling. Encouraged to think about therapy as recently moved out on own with son for first time as adult and has had many new changes. Client open to trial of low dose ER lithium to stablize mood as quickly as possible. No other changes to tx plan. 11/09/2024 BRAULIO (generalized anxiety disorder) (ICD-10 - F41.1) Client is agreeable to increase in lurasidone from 80 mg to 100 mg for tx of increase in manic behaviors/AH. Haldol 0.5 mg PRN prescribed as rescue medication for client to take half tablet to full tablet once a day for increased paranoia as client very fearful of losing job due to continued behaviors. No other changes in tx plan at this time. Client has taken the rest of the week off work and knows to call if letter needed. 08/10/2024 BRAULIO (generalized anxiety disorder) (ICD-10 - F41.1) Client doing well, no treatment plan changes needed at present. 05/24/2024 BRAULIO (generalized anxiety disorder) (ICD-10 - F41.1) 05/16/2024 Schizoaffective disorder (ICD-10 - F25.9) 03/09/2024 BRAULIO (generalized anxiety disorder) (ICD-10 - F41.1) Client very distressed, denies SI/HI. Requests increases to Latuda/guanfaci ne. Discussed increase to venlafaxine as this as helped in past. Discussed cannabis withdrawal playing larger role in symptomology than client may be realizing. Client states does not feel this is the issue. Encouraged client to reach out to endocrinology for hormone level check in event this could also be playing a role in symptoms. 02/16/2024 BRAULIO (generalized anxiety disorder) (ICD-10 - F41.1) 02/02/2024 BRAULIO (generalized anxiety disorder) (ICD-10 - F41.1) Client requests a prn immediate release dose of guanafacine to use during daytime to see if helpful for anxiety and an increase in ER to see if helpful. No other changes in medications at this time. 02/02/2024 ADHD (attention deficit hyperactivity disorder), combined type (ICD-10 - F90.2) Client requests a prn immediate release dose of guanafacine to use during daytime to see if helpful for anxiety and an increase in ER to see if helpful. No other changes in medications at this time. 03/09/2024 ADHD (attention deficit hyperactivity disorder), combined type (ICD-10 - F90.2) Client very distressed, denies SI/HI. Requests increases to Latuda/guanfaci ne. Discussed increase to venlafaxine as this as helped in past. Discussed cannabis withdrawal playing larger role in symptomology than client may be realizing. Client states does not feel this is the issue. Encouraged client to reach out to endocrinology for hormone level check in event this could also be playing a role in symptoms. 05/24/2024 ADHD (attention deficit hyperactivity disorder), combined type (ICD-10 - F90.2) 08/10/2024 ADHD (attention deficit hyperactivity disorder), combined type (ICD-10 - F90.2) Client doing well, no treatment plan changes needed at present. 11/09/2024 ADHD (attention deficit hyperactivity disorder), combined type (ICD-10 - F90.2) Client is agreeable to increase in lurasidone from 80 mg to 100 mg for tx of increase in manic behaviors/AH. Haldol 0.5 mg PRN prescribed as rescue medication for client to take half tablet to full tablet once a day for increased paranoia as client very fearful of losing job due to continued behaviors. No other changes in tx plan at this time. Client has taken the rest of the week off work and knows to call if letter needed. 11/22/2024 ADHD (attention deficit hyperactivity disorder), combined type (ICD-10 - F90.2) Client continues to struggle with mood swings and irritability. Haldol unhelpful for quick mood stability as hoped. Client requesting lurasidone maxed out at 120 mg (now at 100 mg) as this medication has been very helpful in past and client does not want to switch to different SGA. Not in dx list but has been dx BPD in past and not currently in counseling. Encouraged to think about therapy as recently moved out on own with son for first time as adult and has had many new changes. Client open to trial of low dose ER lithium to stablize mood as quickly as possible. No other changes to tx plan. 11/22/2024 Extrapyramidal and movement disorder, unspecified (ICD-10 - G25.9) Client continues to struggle with mood swings and irritability. Haldol unhelpful for quick mood stability as hoped. Client requesting lurasidone maxed out at 120 mg (now at 100 mg) as this medication has been very helpful in past and client does not want to switch to different SGA. Not in dx list but has been dx BPD in past and not currently in counseling. Encouraged to think about therapy as recently moved out on own with son for first time as adult and has had many new changes. Client open to trial of low dose ER lithium to stablize mood as quickly as possible. No other changes to tx plan. 11/09/2024 Extrapyramidal and movement disorder, unspecified (ICD-10 - G25.9) Client is agreeable to increase in lurasidone from 80 mg to 100 mg for tx of increase in manic behaviors/AH. Haldol 0.5 mg PRN prescribed as rescue medication for client to take half tablet to full tablet once a day for increased paranoia as client very fearful of losing job due to continued behaviors. No other changes in tx plan at this time. Client has taken the rest of the week off work and knows to call if letter needed. 08/10/2024 Extrapyramidal and movement disorder, unspecified (ICD-10 - G25.9) Client doing well, no treatment plan changes needed at present. 05/24/2024 Extrapyramidal and movement disorder, unspecified (ICD-10 - G25.9) 03/09/2024 Extrapyramidal and movement disorder, unspecified (ICD-10 - G25.9) Client very distressed, denies SI/HI. Requests increases to Latuda/guanfaci ne. Discussed increase to venlafaxine as this as helped in past. Discussed cannabis withdrawal playing larger role in symptomology than client may be realizing. Client states does not feel this is the issue. Encouraged client to reach out to endocrinology for hormone level check in event this could also be playing a role in symptoms. 02/02/2024 Extrapyramidal and movement disorder, unspecified (ICD-10 - G25.9) Client requests a prn immediate release dose of guanafacine to use during daytime to see if helpful for anxiety and an increase in ER to see if helpful. No other changes in medications at this time. [place]24 [place]. Discussed sleep hygiene and caffeine intake with encouragement to limit electronic devices an hour before bed and to limit caffeine after 3:00pm. Exercise benefits for mood and health discussed. Psychoeducation regarding psychiatric illness provided. Client was educated about risks and benefits of medication, alternatives to medication, off label uses of medication, suicidal ideation with SSRIs, self-administrati on and compliance with medication along with how to safely store medication. Verbal informed consent obtained. Client agrees to return sooner if symptoms worsen or if suicidal or homicidal ideations occur. Client has the phone number to the 24-hour crisis line at [facility]. Questions addressed. Client verbalized understanding of all information and is agreeable to treatment plan. Client requests a prn immediate release dose of guanafacine to use during daytime to see if helpful for anxiety and an increase in ER to see if helpful. No other changes in medications at this time. 03/09/2024 [place]. Discussed sleep hygiene and caffeine intake with encouragement to limit electronic devices an hour before bed and to limit caffeine after 3:00pm. Exercise benefits for mood and health discussed. Psychoeducation regarding psychiatric illness provided. Client was educated about risks and benefits of medication, alternatives to medication, off label uses of medication, suicidal ideation with SSRIs, self-administrati on and compliance with medication along with how to safely store medication. Verbal informed consent obtained. Client agrees to return sooner if symptoms worsen or if suicidal or homicidal ideations occur. Client has the phone number to the 24-hour crisis line at [facility]. Questions addressed. Client verbalized understanding of all information and is agreeable to treatment plan. Client very distressed, denies SI/HI. Requests increases to Latuda/guanfaci ne. Discussed increase to venlafaxine as this as helped in past. Discussed cannabis withdrawal playing larger role in symptomology than client may be realizing. Client states does not feel this is the issue. Encouraged client to reach out to endocrinology for hormone level check in event this could also be playing a role in symptoms. 05/24/2024 [place]. Discussed sleep hygiene and caffeine intake with encouragement to limit electronic devices an hour before bed and to limit caffeine after 3:00pm. Exercise benefits for mood and health discussed. Psychoeducation regarding psychiatric illness provided. Client was educated about risks and benefits of medication, alternatives to medication, off label uses of medication, suicidal ideation with SSRIs, self-administrati on and compliance with medication along with how to safely store medication. Verbal informed consent obtained. Client agrees to return sooner if symptoms worsen or if suicidal or homicidal ideations occur. Client has the phone number to the 24-hour crisis line at [facility]. Questions addressed. Client verbalized understanding of all information and is agreeable to treatment plan. 08/10/2024 [place]. Discussed sleep hygiene and caffeine intake with encouragement to limit electronic devices an hour before bed and to limit caffeine after 3:00pm. Exercise benefits for mood and health discussed. Psychoeducation regarding psychiatric illness provided. Client was educated about risks and benefits of medication, alternatives to medication, off label uses of medication, suicidal ideation with SSRIs, self-administrati on and compliance with medication along with how to safely store medication. Verbal informed consent obtained. Client agrees to return sooner if symptoms worsen or if suicidal or homicidal ideations occur. Client has the phone number to the 24-hour crisis line at [facility]. Questions addressed. Client verbalized understanding of all information and is agreeable to treatment plan. Client doing well, no treatment plan changes needed at present. 11/09/2024 Other Discussed sleep hygiene and caffeine intake with encouragement to limit electronic devices an hour before bed and to limit caffeine after 3:00pm. Exercise benefits for mood and health discussed. Psychoeducation regarding psychiatric illness provided. Client was educated about risks and benefits of medication, alternatives to medication, off label uses of medication, suicidal ideation with SSRIs, self-administrati on and compliance with medication along with how to safely store medication. Verbal informed consent obtained. Client agrees to return sooner if symptoms worsen or if suicidal or homicidal ideations occur. Client has the phone number to the 24-hour crisis line at [facility]. Questions addressed. Client verbalized understanding of all information and is agreeable to treatment plan. Client is agreeable to increase in lurasidone from 80 mg to 100 mg for tx of increase in manic behaviors/AH. Haldol 0.5 mg PRN prescribed as rescue medication for client to take half tablet to full tablet once a day for increased paranoia as client very fearful of losing job due to continued behaviors. No other changes in tx plan at this time. Client has taken the rest of the week off work and knows to call if letter needed. 11/22/2024 Other Discussed sleep hygiene and caffeine intake with encouragement to limit electronic devices an hour before bed and to limit caffeine after 3:00pm. Exercise benefits for mood and health discussed. Psychoeducation regarding psychiatric illness provided. Client was educated about risks and benefits of medication, alternatives to medication, off label uses of medication, suicidal ideation with SSRIs, self-administrati on and compliance with medication along with how to safely store medication. Verbal informed consent obtained. Client agrees to return sooner if symptoms worsen or if suicidal or homicidal ideations occur. Client has the phone number to the 24-hour crisis line at [facility]. Questions addressed. Client verbalized understanding of all information and is agreeable to treatment plan. Client continues to struggle with mood swings and irritability. Haldol unhelpful for quick mood stability as hoped. Client requesting lurasidone maxed out at 120 mg (now at 100 mg) as this medication has been very helpful in past and client does not want to switch to different SGA. Not in dx list but has been dx BPD in past and not currently in counseling. Encouraged to think about therapy as recently moved out on own with son for first time as adult and has had many new changes. Client open to trial of low dose ER lithium to stablize mood as quickly as possible. No other changes to tx plan. Plan Of Treatment No Information Insurance Providers Payer Name Payer Address Payer Phone Subscriber Number Group Number Insured Name Patient Relationship to Insured Coverage Start Date Coverage End Date [employer] [address] [place] [phone] [id number] Tisha Macias Self - patient is the insured [employer] [address] [place] [address] [id number] Tisha Macias Self - patient is the insured 1 Medications Administered Medication Instructions Date of Administration Dosage Notes Ben (Risperidone XR) 02/25/2021 90 mg Patient tolerate d well. Medical (General) History Medical History History ICD Code Rheumatoid Arthritis MDD (major depressive disorder), recurre nt episode, severe F33.2 Severe episode of recurrent major depressive disorder, without psychotic features F33.2 Surgical History Surgery Date(Month/Year) L thumb repair
--- OUTSIDE RECORDS SUMMARY | 2025-01-16 14:19 | XMS_ITS | Referral Summary ---
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 Name Role Phone Susu Macedo MD Primary Care Provider [phone] Allergies No known active allergies Medications adalimumab [...] (01/22/2021): Added automatically from request for surgery [id number] Premenstrual dysphoric disorder 01/22/2021 Overview (01/22/2021): Added automatically from request for surgery [id number] Gender identity disorder 01/22/2021 Overview (01/22/2021): Added automatically from request for surgery [id number] Adiposity 01/26/2014 Overview (10/25/2016): Obesity Arthralgia 01/26/2014 Overview (10/25/2016): Joint pain Social History Tobacco Use Types Packs/Day Years [...] on file Legal Sex Female 7:32 PM 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[employer]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 Gender Identity Male 2023 12:22 PM CDT Sexual Orientation Not on file Last Filed Vital Signs Vital Sign Reading Time Taken Comments Blood Pressure 109/76 06/16/2023 8:14 AM DRUM HANDLER Pulse 74 06/16/2023 8:14 AM DRUM HANDLER Temperature 36.5 C (97.7 F) 08/28/2018 10:38 AM DRUM HANDLER Respiratory Rate 18 06/16/2023 8:14 AM DRUM HANDLER Oxygen Saturation 94% 06/16/2023 8:14 AM DRUM HANDLER Inhaled Oxygen Concentration - - Weight 100.2 kg (221 lb) 06/16/2023 8:14 AM DRUM HANDLER Height 167.6 cm (5' 6) 06/16/2023 8:14 AM DRUM HANDLER Body Mass Index 35.67 06/16/2023 8:14 AM DRUM HANDLER Plan of Treatment Not on file Insurance [facility] Care Teams Cable Installer Repairer Helper Relationship Specialty Start Date End Date Susu Macedo MD PCP - General 01/22/21
--- NOTE | 2025-01-16 14:40 | ED.EAR ---
HPI - Ear Problem General Chief complaint: Ear Stated complaint: ear infection Time Seen by Provider: 01/16/25 14:41 Source: patient Mode of arrival: ambulatory Limitations: no limitations History of Present Illness HPI Narrative: 39-year-old female transitioning to male presented for complaint of left ear pain for 3 weeks. Patient takes approximately 1600 mg of ibuprofen daily for rheumatoid stiffness, however she says this pain is worse than the rheumatoid pain. Denies associated decreased hearing, tinnitus, ear drainage, dizziness, nasal congestion, nausea vomiting, fever. Patient smokes marijuana to reduce pain. MD Complaint: ear pain Related Data Home Medications ?Medication ?Instructions ?Recorded ?Confirmed ?Last Taken ?Type lorazepam 1 mg tablet (Ativan) 1 mg PO BID PRN Anxiety 11/22/21 02/29/24 Unknown History clonidine HCl 0.1 mg 0.1 mg PO 12/23/22 02/29/24 Unknown History tablet,extended release,12 hr lamotrigine 200 mg tablet 200 mg PO 12/23/22 02/29/24 Unknown History testosterone cypionate 200 mg/mL 200 mg subcut 12/23/22 02/29/24 Unknown History intramuscular oil trazodone 50 mg tablet 50 mg PO 12/23/22 02/29/24 Unknown History venlafaxine 75 mg capsule,extended 75 mg PO 12/23/22 02/29/24 Unknown History release 24 hr Allergies Allergy/AdvReac Type Severity Reaction Status Date / Time No Known Allergies Allergy Verified 01/16/25 14:25 Review of Systems Review of Systems: CONSTITUTIONAL: Denies malaise, chills, or fever. EYES: Denies visual changes, redness, or discharge. ENT: Denies rhinorrhea, congestion, sinus pain, and sore throat. Reports ear pain CARDIOVASCULAR: Denies chest pain, palpitations, or edema. RESPIRATORY: Denies cough or dyspnea. GASTROINTESTINAL: Denies abdominal pain, nausea, vomiting, diarrhea SKIN: Denies rash or itching. MUSCULOSKELETAL: Denies myalgia. NEUROLOGIC: Denies headache. All systems reviewed & are unremarkable except as noted in HPI and below PMFSH Past Medical History Medical History Anxiety Borderline personality disorder Depression Gender dysphoria Obstructive sleep apnea Rheumatoid arthritis Family History Family History Father Heart disease Cerebrovascular accident Agent orange exposure Mother Type 2 diabetes mellitus Hypertension Cancer Sibling Unknown whether patient has any health problems Social History Social History Smoking status: Former smoker (quit 10 years ago 2012) Smoking end date: 07/20/12 Alcohol intake: never Substance use: current Substance use type: marijuana Other substance usage details: socially Living arrangements: with family Occupation/Education: student Gender identity (if verbalized by the patient): Transgender Male Comments At time of signature, agree with nursing past medical, surgical, social and family history. There is no relevant family history pertinent to the presenting complaint Exam Narrative: GENERAL: Well-appearing EYES: PERRLA, conjunctivae clear ENT: Nares clear. Mucous membranes moist. Bilateral TM pearly means, intact; canals not erythematous, no drainage, no tragal tenderness. Reports pre and postauricular tenderness with palpation, no erythema. Nontender to TMJ, normal ROM. NECK: Supple. No lymphadenopathy CHEST: Clear to auscultation, breath sounds equal. No wheezing, rhonchi, rales, or stridor. No respiratory distress, speaks in full sentences. HEART: Regular rate and rhythm. No murmur heard. SKIN: Warm, dry, no rash. NEURO: Alert and oriented x3. No trigeminal discomfort. PSYCH: Normal mood and affect Course Course Emergency Course: Patient is aware of diagnosis, understands and agrees to treatment plan. Anticipatory guidance given. Patient agrees to follow-up as directed and is aware of reasons to seek care at the emergency department. Portions of this record may have been created with voice recognition software Level of Care: Express Care Visit Vital Signs Vital signs: Vital Signs Temperature 97.2 F L 01/16/25 14:13 Pulse Rate 76 01/16/25 14:13 Respiratory Rate 18 01/16/25 14:13 Blood Pressure 106/66 01/16/25 14:13 Pulse Oximetry 100 01/16/25 14:13 Oxygen Delivery Room Air 01/16/25 14:13 Temperature 97.2 F L 01/16/25 14:13 Pulse Rate 76 01/16/25 14:13 Respiratory Rate 18 01/16/25 14:13 Blood Pressure 106/66 01/16/25 14:13 Pulse Oximetry 100 01/16/25 14:13 Oxygen Delivery Room Air 01/16/25 14:13 Reviewed Medical Decision Making MDM Narrative Medical decision making narrative: Discussed physical exam findings; no apparent AOM. Advised supportive measures and signs/symptoms to go to the ER. Pt is appropriate for outpt treatment and f/u. Differential Diagnosis Differential Diagnosis: Otitis externa, TM rupture, cholesteatoma, foreign body, auricular perichondritis otitis media, bullous myringitis, mastoiditis, eustachian tube dysfunction Vital Signs Vital Signs: Vital Signs Temperature 97.2 F L 01/16/25 14:13 Pulse Rate 76 01/16/25 14:13 Respiratory Rate 18 01/16/25 14:13 Blood Pressure 106/66 01/16/25 14:13 Pulse Oximetry 100 01/16/25 14:13 Oxygen Delivery Room Air 01/16/25 14:13 Temperature 97.2 F L 01/16/25 14:13 Pulse Rate 76 01/16/25 14:13 Respiratory Rate 18 01/16/25 14:13 Blood Pressure 106/66 01/16/25 14:13 Pulse Oximetry 100 01/16/25 14:13 Oxygen Delivery Room Air 01/16/25 14:13 Discharge Plan Discharge Clinical Impression: Otalgia of left ear Patient Disposition: Home Condition: Stable Instructions: Antibiotic Form, Earache (ED) Additional Instructions: Recommendations antihistamine such as Benadryl, Zyrtec or Keli along with Flonase nasal spray, 1 spray in each nostril once daily until symptoms improve increase humidity of the air at home. Tylenol 1000mg every 8 hours as needed to reduce pain, located take along with your current ibuprofen Please schedule a follow-up visit with ENT If your symptoms persist, change or worsen significantly, go to the emergency department for further evaluation. Patient Language: [place] Prescriptions: No Action lorazepam [Ativan] 1 mg Tablet 1 mg PO BID PRN (Reason: Anxiety) venlafaxine 75 mg capsule,extended release 24hr 75 mg PO lamotrigine 200 mg tablet 200 mg PO clonidine HCl 0.1 mg tablet extended release 12 hr 0.1 mg PO trazodone 50 mg tablet 50 mg PO testosterone cypionate 200 mg/mL oil 200 mg subcut Follow-up/Referrals: Sukhjinder Butts MD [Physician] - PHYSICIAN,PATIENT ACCESS REGISTRAR [Primary Care Provider] - Time of Disposition: 14:50
== END 2025-01-16 14:56 | disposition home or self-care (01) ==
PROVIDERS: Emergency Provider Nurse Practitioner Family; Referring Provider Family Medicine
DX: H92.02 Otalgia, left ear (principal); M06.9 Rheumatoid arthritis, unspecified; Z87.891 Personal history of nicotine dependence
CPT/HCPCS: 99211; G0463